=== PATIENT | female | born 1925 | race African-American/Black ===

== ENCOUNTER 2016-12-30 20:00 | Emergency (ER) | payer MEDICAID, MEDICARE ==
[~2016-12-30] VITALS: Ht 165.1 cm; Wt 72.0 kg
[~2016-12-30 20:00] MED LIST: ACET-2902 PO; AMLO-511 PO; ASPI-1093 PO; ATOR20TA86 PO; DONE5TAB PO; DSS100 PO; LEVO50 PO; MEMA5 PO; MULT-1203 PO; RANO500T3 PO
[2016-12-30] MEDS ORDERED: CYAN1TAB44 PO (20:41)
[2016-12-30] MEDS ORDERED: FOLI1 PO (20:41)
[2016-12-30] MEDS ORDERED: ACETAMINOPHEN/CODEINE 300-15 MG TABLET PO ONE (22:30)
[2016-12-30] MEDS ORDERED: ACETAMINOPHEN 500 MG TABLET PO ONE (22:45)
[2016-12-30 23:00] VITALS: BP 138/71
== END 2016-12-30 23:02 | disposition home or self-care (01) ==
LOC: EMS 20:03
DX: S40.011A Contusion of right shoulder, initial encounter (principal); I10 Essential (primary) hypertension; E78.00 Pure hypercholesterolemia, unspecified; F03.90 Unspecified dementia, unspecified severity, without behavioral disturbance, psychotic disturbance, mood disturbance, and anxiety; W05.0XXA Fall from non-moving wheelchair, initial encounter; Y93.89 Activity, other specified; Y92.098 Other place in other non-institutional residence as the place of occurrence of the external cause; Y99.8 Other external cause status
CPT/HCPCS: 72100; 99284